=== PATIENT | female | born 1950 | race American Indian/Alaskan Native ===

== ENCOUNTER 2018-05-13 23:27 | Inpatient (IN) | payer BC, MEDICARE ==
--- NOTE | 2018-05-13 23:36 | Emergency Department Report ---
ED Shortness of Breath HPI - General Chief Complaint: Dyspnea/Respdistress Stated Complaint: ARON Time Seen by Provider: 05/13/18 23:27 Source: EMS Mode of arrival: Stretcher Limitations: No Limitations - History of Present Illness Initial Comments: Patient is a 68-year-old female that presents emergency room with shortness of breath and respiratory distress. Patient states that she's had a cough for approximately 5 days. Patient's had shortness of breath for 5 days. Patient states that her symptoms are worsening. Today her symptoms began so bad that she was having difficulties in breathing. Patient also complains of fever and chills. Patient denies history of CHF. Patient has history of COPD. Patient states she been taking her labs at home with not much relief. Patient brought in by EMS. Report received from EMS. Patient was given in route by EMS Solu- Medrol, magnesium, and albuterol. MD Complaint: shortness of breath, cough -: Sudden Severity: severe Consistency: constant Improves With: oxygen, rest, bronchodilators, upright position Worsens With: lying flat, exertion, movement, coughing, inspiration Known History Of: COPD Context: recent URI Associated Symptoms: fever, cough, sputum production, orhopnia Treatments Prior to Arrival: oxygen, bronchodilator, other - Related Data Home Oxygen Therapy: No Home Medications Medication Instructions Recorded Confirmed Last Taken Amlodipine Besylate [Norvasc] 5 mg PO DAILY 05/14/18 05/14/18 Unknown B Complex 1 tab PO DAILY 05/14/18 05/14/18 Unknown Calcium Carbonate [Calcium] 500 mg PO DAILY 05/14/18 05/14/18 Unknown Ibuprofen 800 mg PO Q8HR PRN 05/14/18 05/14/18 Unknown Allergies Allergy/AdvReac Type Severity Reaction Status Date / Time No Known Allergies Allergy Unverified 05/13/18 23:37 ED Review of Systems ROS: Stated complaint: ARON Other details as noted in HPI Constitutional: chills, fever Eyes: denies: eye pain, eye discharge, vision change ENT: denies: ear pain, throat pain Respiratory: cough, shortness of breath, SOB with exertion, SOB at rest, wheezing Cardiovascular: denies: chest pain, palpitations Endocrine: no symptoms reported Gastrointestinal: denies: abdominal pain, nausea, diarrhea Genitourinary: denies: urgency, dysuria, discharge Musculoskeletal: denies: back pain, joint swelling, arthralgia Skin: denies: rash, lesions Neurological: denies: headache, weakness, paresthesias Psychiatric: denies: anxiety, depression Hematological/Lymphatic: denies: easy bleeding, easy bruising ED Past Medical Hx - Past Medical History Previous Medical History?: Yes Hx of Cancer: Yes (Lung CA- in remession) Hx Asthma: Yes Hx COPD: Yes - Surgical History Past Surgical History?: Yes Additional Surgical History: Lung Biopsy - Family History Family history: no significant - Social History Smoking Status: Former Smoker Substance Use Type: None - Medications Home Medications: Home Medications Medication Instructions Recorded Confirmed Last Taken Type Amlodipine Besylate [Norvasc] 5 mg PO DAILY 05/14/18 05/14/18 Unknown History B Complex 1 tab PO DAILY 05/14/18 05/14/18 Unknown History Calcium Carbonate [Calcium] 500 mg PO DAILY 05/14/18 05/14/18 Unknown History Ibuprofen 800 mg PO Q8HR PRN 05/14/18 05/14/18 Unknown History ED Physical Exam - General Limitations: No Limitations General appearance: alert, in distress - Head Head exam: Present: atraumatic, normocephalic - Eye Eye exam: Present: normal appearance, PERRL Pupils: Present: normal accommodation - ENT ENT exam: Present: mucous membranes dry - Neck Neck exam: Present: normal inspection - Respiratory Respiratory exam: Present: respiratory distress, wheezes, rhonchi, accessory muscle use - Cardiovascular Cardiovascular Exam: Present: regular rate, normal rhythm. Absent: systolic murmur, diastolic murmur, rubs, gallop - GI/Abdominal GI/Abdominal exam: Present: soft, normal bowel sounds. Absent: distended, tenderness, guarding - Rectal Rectal exam: Present: deferred - Extremities Exam Extremities exam: Present: normal inspection, full ROM - Back Exam Back exam: Present: normal inspection - Neurological Exam Neurological exam: Present: alert, oriented X3 - Psychiatric Psychiatric exam: Present: normal affect, normal mood - Skin Skin exam: Present: warm, dry, intact, normal color. Absent: rash ED Course Vital Signs 05/13/18 05/13/18 05/13/18 23:30 23:33 23:45 Temperature 99.7 F H Pulse Rate 141 H 140 H 137 H Respiratory 30 H 50 H 56 H Rate Blood Pressure 136/65 120/48 O2 Sat by Pulse 100 99 93 Oximetry 05/14/18 00:12 Temperature Pulse Rate 137 H Respiratory 31 H Rate Blood Pressure O2 Sat by Pulse 95 Oximetry - Reevaluation(s) Reevaluation #1: Evaluation done. Patient will be given a DuoNeb and placed on BiPAP. 05/13/18 23:50 Work to breathe has improved. Patient's oxygen has improved. 05/14/18 00:35 Heart rate is improving with fluids. 05/14/18 01:34 She continues to improve. A heart rate is currently 112. Patient will be admitted to the hospitalist service. Discussed all results with patient and family. Both agree with the plan of care and admission. 05/14/18 01:54 - Consultations Consultation #1: Hospitalist was consulted for admission. Hospitalist to admit patient. Hospitalist to assume care patient. 05/14/18 01:51 ED Medical Decision Making - Lab Data Result diagrams: 05/13/18 23:42 05/13/18 23:42 - EKG Data -: EKG Interpreted by Me EKG shows normal: sinus rhythm, axis, intervals, ST-T waves Rate: tachycardia - EKG Data Interpretation: other (right bundle-branch block noted. wide QRS.) - Radiology Data Radiology results: report reviewed, image reviewed interpreted by me: Chest x-ray positive for right-sided pneumonia. FINAL REPORT EXAM: XR CHEST 1V AP HISTORY: sob COMPARISON: None available. FINDINGS: Frontal view(s) of the chest obtained. Cardiac silhouette within normal limits. Patchy airspace consolidation right mid to lower lung concerning for pneumonia. There may be a trace right-sided pleural effusion versus pleural thickening. Left lung is grossly clear. No pneumothorax. IMPRESSION: Patchy airspace consolidation right mid to lower lung concerning for pneumonia. - Medical Decision Making She is 68-year-old female that presents emergency room with complaints of difficulty breathing and shortness of breath.. Patient had other symptoms of cough and fever off 5 days. Patient found to be hypoxic and tachycardic. Patie nt was given fluids which improved his tachycardia. Patient was initially placed on BiPAP which has improved patient's work to breathe and respiratory distress. Patient has improved. Patient was also given fluids and antibiotics. Patient will be admitted to the hospitalist service for further evaluation treatment. - Differential Diagnosis pneumonia. COPD exacerbation. Hypoxia. Shortness of breath. Critical Care Time: Yes Critical care attestation.: If time is entered above; I have spent that time in minutes in the direct care of this critically ill patient, excluding procedure time. Critical Care Time: 55 minutes ED Disposition Clinical Impression: SOB (shortness of breath), Hypoxia, Respiratory distress, COPD exacerbation, Tachycardia Pneumonia Qualifiers: Pneumonia type: due to unspecified organism Laterality: right Lung location: unspecified part of lung Qualified Code(s): J18.9 - Pneumonia, unspecified organism Disposition: OP ADMIT IP TO THIS HOSP Is pt being admited?: Yes Does the pt Need Aspirin: No Condition: Critical Referrals: YAHIR CAMILO MD [Primary Care Provider] - 3-5 Days Time of Disposition: 01:50
[2018-05-13 23:56] LABS: Basophils % (Auto) 0.1 % (0.0-1.8); Lymphocytes # (Auto) 2.5 K/mm3 (1.2-5.4); Lymphocytes % (Auto) 15.3 % (13.4-35.0); Mean Corpuscular HGB Conc 30 % (30-34); Monocytes # (Auto) 1.3 K/mm3 (0.0-0.8); Monocytes % (Auto) 8.1 % (0.0-7.3); Platelet Count 195 K/mm3 (140-440); Red Cell Distribution Width 15.8 % (13.2-15.2)
[2018-05-14] MEDS ORDERED: MAXIPIME/NS 2 GM/100 ML 2 GM/100 ML BAG IV ONE (00:03)
[2018-05-14 00:05] LABS: Hematocrit 35.3 % (30.3-42.9); Hemoglobin 10.7 gm/dl (10.1-14.3)
[2018-05-14 00:06] LABS: Mean Corpuscular Volume 69 fl (79-97)
[2018-05-14 00:29] LABS: Alanine Aminotransferase 17 units/L (7-56); Albumin 3.9 g/dL (3.9-5); BUN/Creatinine Ratio 11; Blood Urea Nitrogen 8 mg/dL (7-17); Calcium 9.8 mg/dL (8.4-10.2); Hemolysis Index 1
[2018-05-14] MEDS ORDERED: NACL 0.9% 1000 ML 1,000 ML IV ONE ×2 (00:29→00:49)
--- NOTE | 2018-05-14 01:36 | XRay Report ---
FINAL REPORT EXAM: XR CHEST 1V AP HISTORY: sob COMPARISON: None available. FINDINGS: Frontal view(s) of the chest obtained. Cardiac silhouette within normal limits. Patchy airspace conso lidation right mid to lower lung concerning for pneumonia. There may be a trace right-sided pleural e ffusion versus pleural thickening. Left lung is grossly clear. No pneumothorax. IMPRESSION: Patchy airspace consolidation right mid to lower lung concerning for pneumonia.
[2018-05-14] MEDS ORDERED: PROVENTIL IH PRN (03:30)
[2018-05-14] MEDS ORDERED: ZOFRAN IV PRN (03:30)
[2018-05-14] MEDS ORDERED: TYLENOL PO PRN (03:30)
[2018-05-14] MEDS ORDERED: SODIUM CHLORIDE FLUSH SYRINGE 10 ML IV PRN (03:30)
--- NOTE | 2018-05-14 03:45 | History and Physical Report ---
<SHAUNA ELISE - Last Filed: 05/14/18 04:41> History of Present Illness Date of examination: 05/14/18 Date of admission: 05/14/2018 Chief complaint: Shortness of breath, inability to breathing History of present illness: Patient is a 68-year-old female with past medical history of lung Ca in remission, COPD/asthma, home O2 dependent, hypercholesterolemia, anemia, who presents to the ER with complaints of shortness of breath and respiratory distress started today. Patient and daughter in room provides the medical history states that the patient has been coughing for about 5 days, she get her some OTC cough syrup with some improvement. Patient's daughter states that the electricity was out in house and she was using the portable O2 since yesterday, she states that today she develops worsening cough and shortness of breath, she was unable to breath, EMS was called ant the patient was taking to the ER for evaluation. She denies any sputum production, denies any fever, denies chills, denies chest pain. Patient was giving nebulizer treatment and steroids prior to coming to the ER, in the ER she continued to have severe dyspnea and hypoxia, she was placed in a bipap, her chest x-ray showed airway consolidation suspici ous for pneumonia, WBC was 16.4, she is admitted for further evaluation and treatment. Past History Past Medical History: cancer (lung), COPD, hyperlipidemia Past Surgical History: No surgical history Social history: smoking (quit 10 years ago) Family history: no significant family history Medications and Allergies Allergies Allergy/AdvReac Type Severity Reaction Status Date / Time No Known Allergies Allergy Unverified 05/13/18 23:37 Home Medications Medication Instructions Recorded Confirmed Last Taken Type Amlodipine Besylate [Norvasc] 5 mg PO DAILY 05/14/18 05/14/18 Unknown History B Complex 1 tab PO DAILY 05/14/18 05/14/18 Unknown History Calcium Carbonate [Calcium] 500 mg PO DAILY 05/14/18 05/14/18 Unknown History Ibuprofen 800 mg PO Q8HR PRN 05/14/18 05/14/18 Unknown History Active Meds: Active Medications Acetaminophen (Tylenol) 650 mg PO Q4H PRN PRN Reason: Pain MILD(1-3)/Fever >100.5/CORDERO Albuterol (Proventil) 2.5 mg IH Q3HRT PRN PRN Reason: Shortness Of Breath Enoxaparin Sodium (Lovenox) 40 mg SUB-Q QDAY [place] Famotidine (Pepcid) 10 mg IV BID [facility] Azithromycin 500 mg/ Sodium (Chloride) 250 mls @ 250 mls/hr IV Q24HR PAXTON; Protocol Ceftriaxone Sodium (Rocephin/Ns 2 Gm/100 Ml) 2 gm in 100 mls @ 200 mls/hr IV Q24HR PAXTON; Protocol Sodium Chloride (Nacl 0.9% 1000 Ml) 1,000 mls @ 42 mls/hr IV DIRECT PAXTON Methylprednisolone Sodium Succinate (Solu-Medrol) 80 mg IV Q8HR PAXTON Ondansetron HCl (Zofran) 4 mg IV Q8H PRN PRN Reason: Nausea And Vomiting Sodium Chloride (Sodium Chloride Flush Syringe 10 Ml) 10 ml IV PRN PRN PRN Reason: LINE FLUSH Review of Systems Respiratory: cough, shortness of breath, dyspnea on exertion Exam - Constitutional Vitals: Temp Pulse Resp BP Pulse Ox 99.7 F H 105 H 15 107/56 97 05/13/18 23:30 05/14/18 03:15 05/14/18 03:15 05/14/18 03:15 05/14/18 03:15 Results - Labs CBC & Chem 7: 05/13/18 23:42 05/13/18 23:42 Labs: Laboratory Last Values WBC 16.4 K/mm3 (4.5-11.0) H 05/13/18 23:42 RBC 5.10 M/mm3 (3.65-5.03) H 05/13/18 23:42 Hgb 10.7 gm/dl (10.1-14.3) 05/13/18 23:42 Hct 35.3 % (30.3-42.9) 05/13/18 23:42 MCV 69 fl (79-97) L 05/13/18 23:42 MCH 21 pg (28-32) L 05/13/18 23:42 MCHC 30 % (30-34) 05/13/18 23:42 RDW 15.8 % (13.2-15.2) H 05/13/18 23:42 Plt Count 195 K/mm3 (140-440) 05/13/18 23:42 Lymph % (Auto) 15.3 % (13.4-35.0) 05/13/18 23:42 [place] % (Auto) 8.1 % (0.0-7.3) H 05/13/18 23:42 Eos % (Auto) 0.0 % (0.0-4.3) 05/13/18 23:42 Baso % (Auto) 0.1 % (0.0-1.8) 05/13/18 23:42 Lymph # 2.5 K/mm3 (1.2-5.4) 05/13/18 23:42 [place] # 1.3 K/mm3 (0.0-0.8) H 05/13/18 23:42 Eos # 0.0 K/mm3 (0.0-0.4) 05/13/18 23:42 Baso # 0.0 K/mm3 (0.0-0.1) 05/13/18 23:42 Seg Neutrophils % 76.5 % (40.0-70.0) H 05/13/18 23:42 Seg Neutrophils # 12.5 K/mm3 (1.8-7.7) H 05/13/18 23:42 POC ABG pH 7.414 (7.35-7.45) 05/14/18 00:42 POC ABG pCO2 52.7 (35-45) H 05/14/18 00:42 POC ABG pO2 73 (80-105) L 05/14/18 00:42 POC ABG HCO3 33.7 05/14/18 00:42 POC ABG Total CO2 35 05/14/18 00:42 POC ABG O2 Sat 94 05/14/18 00:42 POC ABG Base Excess 9 05/14/18 00:42 FiO2 40 % 05/14/18 00:42 Sodium 136 mmol/L (137-145) L 05/13/18 23:42 Potassium 3.7 mmol/L (3.6-5.0) 05/13/18 23:42 Chloride 92.4 mmol/L (98-107) L 05/13/18 23:42 Carbon Dioxide 32 mmol/L (22-30) H 05/13/18 23:42 Anion Gap 15 mmol/L 05/13/18 23:42 BUN 8 mg/dL (7-17) 05/13/18 23:42 Creatinine 0.7 mg/dL (0.7-1.2) 05/13/18 23:42 Estimated GFR > 60 ml/min 05/13/18 23:42 BUN/Creatinine Ratio 11 % 05/13/18 23:42 Glucose 144 mg/dL (65-100) H 05/13/18 23:42 Lactic Acid 1.00 mmol/L (0.7-2.0) 05/13/18 23:42 Calcium 9.8 mg/dL (8.4-10.2) 05/13/18 23:42 Total Bilirubin 0.60 mg/dL (0.1-1.2) 05/13/18 23:42 AST 54 units/L (5-40) H 05/13/18 23:42 ALT 17 units/L (7-56) 05/13/18 23:42 Alkaline Phosphatase 83 units/L (35-129) 05/13/18 23:42 Total Creatine Kinase 181 units/L (30-135) H 05/13/18 23:42 CK-MB (CK-2) 3.0 ng/mL (0.0-4.0) 05/13/18 23:42 CK-MB (CK-2) Rel Index 1.6 (0-4) 05/13/18 23:42 Troponin T < 0.010 ng/mL (0.00-0.029) 05/13/18 23:42 NT-Pro-B Natriuret Pep 259.1 pg/mL (0-900) 05/14/18 00:31 Total Protein 7.9 g/dL (6.3-8.2) 05/13/18 23:42 Albumin 3.9 g/dL (3.9-5) 05/13/18 23:42 Albumin/Globulin Ratio 1.0 % 05/13/18 23:42 Assessment and Plan Assessment and plan: 1. COPD/asthma with acute exacerbation 2. Pneumonia/CAP 3. History of lung CA (this is in remission) 4. Hyperlipidemia 5. Leukocytosis 6. History of anemia 7. Anxiety Plan: Patient is admitted to [facility] telemetry for COPD exacerbation Continue nebulizer treatments Q4 hours/PRN RT to monitor BiPAP Initiate Protocol with Rocephin/Zithromax IV Keep O2 sat greater than 92% Solu-Medrol 80 mg every 8 hours Cough suppressant when necessary DVT prophylaxis Repeat x-ray in 72 hours Resume home meds Plan discussed with patient and daughter, voiced understanding Further plan per hospital course Patient's condition and plan of care discussed with Dr. Sorensen Advance Directives: Yes VTE prophylaxis?: Chemical, Mechanical Plan of care discussed with patient/family: Yes <ENA SORENSEN - Last Filed: 05/14/18 05:28> History of Present Illness Date of admission: 05/14/18 03:33 Medications and Allergies Active Meds: Active Medications Acetaminophen (Tylenol) 650 mg PO Q4H PRN PRN Reason: Pain MILD(1-3)/Fever >100.5/CORDERO Albuterol (Proventil) 2.5 mg IH Q3HRT PRN PRN Reason: Shortness Of Breath Enoxaparin Sodium (Lovenox) 40 mg SUB-Q QDAY PAX[place] Famotidine (Pepcid) 10 mg IV BID PAX[place] Azithromycin 500 mg/ Sodium (Chloride) 250 mls @ 250 mls/hr IV Q24HR PAXTON; Protocol Sodium Chloride (Nacl 0.9% 1000 Ml) 1,000 mls @ 42 mls/hr IV DIRECT PAXTON Ceftriaxone Sodium (Rocephin/Ns 1 Gm/50 Ml) 1 gm in 50 mls @ 100 mls/hr IV Q24 HR PAXTON; Protocol Methylprednisolone Sodium Succinate (Solu-Medrol) 80 mg IV Q8HR PAXTON Ondansetron HCl (Zofran) 4 mg IV Q8H PRN PRN Reason: Nausea And Vomiting Sodium Chloride (Sodium Chloride Flush Syringe 10 Ml) 10 ml IV PRN PRN PRN Reason: LINE FLUSH Exam - Constitutional Vitals: Temp Pulse Resp BP Pulse Ox 99.1 F 125 H 23 115/59 98 05/14/18 04:00 05/14/18 05:20 05/14/18 05:20 05/14/18 04:50 05/14/18 05:20 Results - Labs CBC & Chem 7: 05/13/18 23:42 05/13/18 23:42 Labs: Laboratory Last Values WBC 16.4 K/mm3 (4.5-11.0) H 05/13/18 23:42 RBC 5.10 M/mm3 (3.65-5.03) H 05/13/18 23:42 Hgb 10.7 gm/dl (10.1-14.3) 05/13/18 23:42 Hct 35.3 % (30.3-42.9) 05/13/18 23:42 MCV 69 fl (79-97) L 05/13/18 23:42 MCH 21 pg (28-32) L 05/13/18 23:42 MCHC 30 % (30-34) 05/13/18 23:42 RDW 15.8 % (13.2-15.2) H 05/13/18 23:42 Plt Count 195 K/mm3 (140-440) 05/13/18 23:42 Lymph % (Auto) 15.3 % (13.4-35.0) 05/13/18 23:42 [place] % (Auto) 8.1 % (0.0-7.3) H 05/13/18 23:42 Eos % (Auto) 0.0 % (0.0-4.3) 05/13/18 23:42 Baso % (Auto) 0.1 % (0.0-1.8) 05/13/18 23:42 Lymph # 2.5 K/mm3 (1.2-5.4) 05/13/18 23:42 [place] # 1.3 K/mm3 (0.0-0.8) H 05/13/18 23:42 Eos # 0.0 K/mm3 (0.0-0.4) 05/13/18 23:42 Baso # 0.0 K/mm3 (0.0-0.1) 05/13/18 23:42 Seg Neutrophils % 76.5 % (40.0-70.0) H 05/13/18 23:42 Seg Neutrophils # 12.5 K/mm3 (1.8-7.7) H 05/13/18 23:42 POC ABG pH 7.414 (7.35-7.45) 05/14/18 00:42 POC ABG pCO2 52.7 (35-45) H 05/14/18 00:42 POC ABG pO2 73 (80-105) L 05/14/18 00:42 POC ABG HCO3 33.7 05/14/18 00:42 POC ABG Total CO2 35 05/14/18 00:42 POC ABG O2 Sat 94 05/14/18 00:42 POC ABG Base Excess 9 05/14/18 00:42 FiO2 40 % 05/14/18 00:42 Sodium 136 mmol/L (137-145) L 05/13/18 23:42 Potassium 3.7 mmol/L (3.6-5.0) 05/13/18 23:42 Chloride 92.4 mmol/L (98-107) L 05/13/18 23:42 Carbon Dioxide 32 mmol/L (22-30) H 05/13/18 23:42 Anion Gap 15 mmol/L 05/13/18 23:42 BUN 8 mg/dL (7-17) 05/13/18 23:42 Creatinine 0.7 mg/dL (0.7-1.2) 05/13/18 23:42 Estimated GFR > 60 ml/min 05/13/18 23:42 BUN/Creatinine Ratio 11 % 05/13/18 23:42 Glucose 144 mg/dL (65-100) H 05/13/18 23:42 Lactic Acid 1.00 mmol/L (0.7-2.0) 05/13/18 23:42 Calcium 9.8 mg/dL (8.4-10.2) 05/13/18 23:42 Total Bilirubin 0.60 mg/dL (0.1-1.2) 05/13/18 23:42 AST 54 units/L (5-40) H 05/13/18 23:42 ALT 17 units/L (7-56) 05/13/18 23:42 Alkaline Phosphatase 83 units/L (35-129) 05/13/18 23:42 Total Creatine Kinase 181 units/L (30-135) H 05/13/18 23:42 CK-MB (CK-2) 3.0 ng/mL (0.0-4.0) 05/13/18 23:42 CK-MB (CK-2) Rel Index 1.6 (0-4) 05/13/18 23:42 Troponin T < 0.010 ng/mL (0.00-0.029) 05/13/18 23:42 NT-Pro-B Natriuret Pep 259.1 pg/mL (0-900) 05/14/18 00:31 Total Protein 7.9 g/dL (6.3-8.2) 05/13/18 23:42 Albumin 3.9 g/dL (3.9-5) 05/13/18 23:42 Albumin/Globulin Ratio 1.0 % 05/13/18 23:42 Assessment and Plan Assessment and plan: Patient seen and examined with nurse practitioner. This is a 68-year-old woman history of lung cancer, COPD on home oxygen comes emergency room complaining of cough productive of green-yellow phlegm, shortness of breath. Daughter bedside stated that her electricity went out, her symptoms worsen she was brought to the emergency room. She is again admitted for acute respiratory failure, COPD exacerbation and multilobar community-acquired pneumonia. Continue BiPAP, start high-dose steroids, antibiotics and nebulizer treatments
[2018-05-14] MEDS ORDERED: NACL 0.9% 1000 ML 1,000 ML IV SCH (04:00)
[2018-05-14] MEDS ORDERED: SOLU-Medrol IV SCH (06:00)
[2018-05-14] MEDS: SOLU-Medrol IV SCH ×3 (06:14→18:38)
[2018-05-14] MEDS ORDERED: ROCEPHIN/NS 2 GM/100 ML 2 GM/100 ML BAG IV SCH (10:00)
[2018-05-14] MEDS: ROCEPHIN/NS 1 GM/50 ML 1 GM/50 ML BAG IV SCH (10:15)
[2018-05-14] MEDS: ZITHROMAX 500 MG in NACL 0.9% 250ML 250 ML IV SCH (10:15)
[2018-05-14] MEDS: LOVENOX SUB-Q SCH (10:15)
[2018-05-14] MEDS: PEPCID IV SCH ×2 (10:15→22:00)
--- NOTE | 2018-05-14 12:23 | Event Note ---
Date: 05/14/18 Patient seen and examined. 68-year-old woman history of lung cancer, COPD on home oxygen presented to the emergency room complaining of cough productive of green-yellow phlegm, shortness of breath. She is admitted for acute respiratory failure, COPD exacerbation and multilobar community-acquired pneumonia. Will continue current mx and plan with BiPAP to wean off as tolerated, high-dose steroids, antibiotics and nebulizer treatments. Continue to monitor clinically.
[2018-05-15] MEDS: SOLU-Medrol IV SCH ×3 (06:00→13:34)
[2018-05-15 06:30] LABS: Basophils % (Auto) 0.1 % (0.0-1.8); Hematocrit 29.2 % (30.3-42.9); Lymphocytes # (Auto) 1.1 K/mm3 (1.2-5.4); Lymphocytes % (Auto) 6.5 % (13.4-35.0); Mean Corpuscular HGB Conc 31 % (30-34); Mean Corpuscular Volume 71 fl (79-97); Monocytes # (Auto) 0.8 K/mm3 (0.0-0.8); Monocytes % (Auto) 4.8 % (0.0-7.3); Platelet Count 200 K/mm3 (140-440); Red Blood Count 4.14 M/mm3 (3.65-5.03); Red Cell Distribution Width 16.2 % (13.2-15.2)
[2018-05-15 06:49] LABS: BUN/Creatinine Ratio 16; Blood Urea Nitrogen 8 mg/dL (7-17); Calcium 8.2 mg/dL (8.4-10.2); Hemolysis Index 3
[2018-05-15] MEDS: ROCEPHIN/NS 1 GM/50 ML 1 GM/50 ML BAG IV SCH (09:41)
[2018-05-15] MEDS: PEPCID IV SCH (09:42)
[2018-05-15] MEDS: LOVENOX SUB-Q SCH (09:42)
[2018-05-15] MEDS: ZITHROMAX 500 MG in NACL 0.9% 250ML 250 ML IV SCH (10:52)
[2018-05-15 11:41] VITALS: BP 95/65
--- NOTE | 2018-05-15 13:05 | Discharge Summary ---
Providers - Providers Date of Admission: 05/14/18 03:33 Date of discharge: 05/15/18 Attending physician: MAC GUILLORY Primary care physician: YAHIR CAMILO Hospitalization Reason for admission: SOB Condition: Critical Pertinent studies: CXR: Patchy airspace consolidation right mid to lower lung concerning for pneumonia. Hospital course: 68-year-old woman history of lung cancer, COPD on home oxygen presented to the emergency room complaining of cough productive of green-yellow phlegm, shortness of breath. She WAs admitted for acute ON CHRONIC respiratory failure, COPD exacerbation and multilobar community-acquired pneumonia. sHE WAS PLACED on BiPAP and weaned off to N/C o2 as tolerated, given high-dose steroids, antibiotics and nebulizer treatments. her symptom improved and was discharged home in stable condition. Discharge diagnosis: 1. COPD with acute exacerbation and acute on chronic respiratory failure, POA 2. Pneumonia/CAP with sepsis, POA 3. History of lung CA (this is in remission) 4. Hyperlipidemia 5. Leukocytosis 6. History of anemia 7. Anxiety Disposition: DC- TO HOME OR SELFCARE Time spent for discharge: 34 minutes Core Measure Documentation - Palliative Care Palliative Care/ Comfort Measures: Not Applicable - Core Measures Any of the following diagnoses?: none Exam - Constitutional Vitals: Temp Pulse Resp BP Pulse Ox 98.2 F 113 H 22 95/65 97 05/15/18 08:00 05/15/18 11:00 05/15/18 11:00 05/15/18 11:00 05/15/18 11:00 General appearance: Present: no acute distress, well-nourished - EENT Eyes: Present: PERRL ENT: hearing intact, clear oral mucosa - Neck Neck: Present: supple, normal ROM - Respiratory Respiratory effort: normal Respiratory: bilateral: wheezing (few wheezes b/l) - Cardiovascular Heart Sounds: Present: S1 & S2. Absent: rub, click - Extremities Extremities: pulses symmetrical, No edema Peripheral Pulses: within normal limits - Abdominal General gastrointestinal: Present: soft, non-tender, non-distended, normal bowel sounds - Integumentary Integumentary: Present: clear, warm, dry - Musculoskeletal Musculoskeletal: gait normal, strength equal bilaterally - Psychiatric Psychiatric: appropriate mood/affect, intact judgment & insight - Neurologic Neurologic: CNII-XII intact, moves all extremities Plan Activity: advance as tolerated Weight Bearing Status: Weight Bear as Tolerated Diet: low fat, low salt Follow up with: YAHIR CAMILO MD [Primary Care Provider] - 3-5 Days Prescriptions: predniSONE [Deltasone] 50 mg PO QDAY #5 tab levoFLOXacin [Levaquin] 750 mg PO QDAY #5 tablet guaiFENesin ER [Mucinex ER] 600 mg PO Q12H #14 tablet.er ALBUTEROL Inhaler(NF) [VENTOLIN Inhaler(NF)] 1 puff IH Q6H PRN 30 Days inha PRN Reason: Shortness Of Breath
[2018-05-15] MEDS ORDERED: PEPCID PO SCH (22:00)
== END 2018-05-15 15:00 | disposition home or self-care (01) | DRG 871 ==
LOC: ED 23:27 → IMCU 05-14 03:33
PROVIDERS: ADMIT Internal Medicine; ATTEND Internal Medicine
PROC: 4A033R1 Measurement of Arterial Saturation, Peripheral, Percutaneous Approach (ICD-10-PCS; 2018-05-14)
PROC: 5A09357 Assistance with Respiratory Ventilation, Less than 24 Consecutive Hours, Continuous Positive Airway Pressure (ICD-10-PCS; principal; 2018-05-15)
DX: A41.9 Sepsis, unspecified organism (principal); J18.1 Lobar pneumonia, unspecified organism; J96.20 Acute and chronic respiratory failure, unspecified whether with hypoxia or hypercapnia; J44.1 Chronic obstructive pulmonary disease with (acute) exacerbation; J44.0 Chronic obstructive pulmonary disease with (acute) lower respiratory infection; J45.901 Unspecified asthma with (acute) exacerbation; E78.00 Pure hypercholesterolemia, unspecified; E78.5 Hyperlipidemia, unspecified; F41.9 Anxiety disorder, unspecified; Z85.118 Personal history of other malignant neoplasm of bronchus and lung; Z87.891 Personal history of nicotine dependence; Z99.81 Dependence on supplemental oxygen
CPT/HCPCS: 36415; 71045; 80048; 80053; 82140; 82550; 82553; 82803; 83880; 84484; 85025; 87040; 93005; 93010; 94640; 94760; G0378; J0456; J0692; J0696; J1650; J2930; J7030; J7050